=== PATIENT | female | born 1980 | race Hispanic/Latino ===

== ENCOUNTER 2016-10-08 03:43 | Emergency (ER) | payer MEDICAID ==
[2016-10-08] MEDS ORDERED: PROVENTIL IH ONE ×3 (04:32→06:15)
[2016-10-08] MEDS ORDERED: DUONEB 0.5 MG-3 MG/3 ML SOLN IH ONE ×2 (04:32→04:42)
--- NOTE | 2016-10-08 06:14 | Emergency Department Report ---
HPI - General Chief Complaint: Adult Asthma Time Seen by Provider: 10/08/16 06:14 - HPI HPI: Patient here reports that she was having shortness of breath and chest tightness because she couldn't catch her breath. She reports that she ran out of her asthma medication. Denies any fever or chills. She reports dry cough. Patient reports that she needs refill on albuterol inhaler and nebulizer. Patient received DuoNeb nebulizer and Proventil in triage area and says she is feeling better but she still has some wheezing. ED Past Medical Hx - Past Medical History Previous Medical History?: Yes Hx Diabetes: Yes (gestational / BORDERLINE) Hx Asthma: Yes - Surgical History Past Surgical History?: Yes Additional Surgical History: R Foot - Family History Family history: hypertension - Social History Smoking Status: Current Every Day Smoker Substance Use Type: None - Medications Home Medications: Home Medications Medication Instructions Recorded Confirmed Last Taken Type metFORMIN [Glucophage] 500 mg PO DAILY 12/26/13 12/26/13 Unknown History Acetaminophen/Codeine [Tylenol #3] 1 tab PO Q6H PRN #14 tab 12/27/13 Unknown Rx Fluticasone Propionate [Flovent 250 mcg INHALATION Q4H PRN #1 01/04/14 Unknown Rx Diskus] disk.w.dev Acetaminophen/Codeine [Tylenol #3] 1 tab PO Q6H PRN #15 tab 04/20/15 Unknown Rx Ibuprofen [Motrin] 800 mg PO Q8HR #30 tablet 04/20/15 Unknown Rx HYDROcodone/APAP 5-325 [[place] 1 each PO Q6HR PRN #10 tablet 07/17/15 Unknown Rx 5/325] predniSONE [Deltasone] 20 mg PO BID #8 tab 07/17/15 Unknown Rx traMADol [Ultram] 50 mg PO Q4HR PRN #20 tablet 11/19/15 Unknown Rx ALBUTEROL Inhaler [ProAir HFA 1 puff INHALATION Q4H PRN #1 inha 10/08/16 Unknown Rx Inhaler] ALBUTEROL NEB's [Proventil 0.083% 2.5 mg INHALATION Q4H PRN #25 units 10/08/16 Unknown Rx NEBS] methylPREDNISolone [Medrol] 4 mg PO QDAY #1 tab.ds.pk 10/08/16 Unknown Rx ED Review of Systems ROS: Stated complaint: ASTHMA/CHEST PAIN Other details as noted in HPI Comment: All other systems reviewed and negative Constitutional: denies: chills, fever Eyes: denies: eye pain, eye discharge ENT: congestion. denies: ear pain, throat pain Respiratory: cough, shortness of breath, SOB with exertion, SOB at rest, wheezing. denies: orthopnea, stridor Cardiovascular: chest pain. denies: palpitations, dyspnea on exertion, orthopnea, edema, syncope Gastrointestinal: denies: abdominal pain, nausea, vomiting Musculoskeletal: denies: back pain, arthralgia Skin: denies: rash Neurological: denies: headache, numbness, paresthesias, abnormal gait, vertigo Physical Exam - Physical Exam Vital Signs: Vital Signs 10/08/16 10/08/16 10/08/16 04:31 04:38 05:01 Temperature 98.2 F Pulse Rate 88 Pulse Rate [ 88 92 H Throughout] Respiratory 20 Rate Respiratory 20 20 Rate [ Throughout] Blood Pressure 139/78 O2 Sat by Pulse 97 Oximetry General: This is a 32-year-old female, obese and in no acute distress. Physical Exam: Head: Normocephalic atraumatic Mouth: Moist, no pharyngeal exudate or erythema. Uvula is midline and oral airway is patent. No gingival enlargement or dental tenderness. No facial swelling. No peritonsillar abscesses. Neck: Supple, no C-spine tenderness, no tracheal deviation. Nontender to palpate. no adenopathy Ears: Bilateral TMs pearly andrews .bilateral EAC without any redness swelling or drainage Eyes: Bilateral pupils equal and reactive to light, bilateral EOM intact. Bilateral sclera and conjunctiva without injection. Normal accommodation Nose: Mucosa moist, positive congestion no erythema. Positive clear drainage. maxillary and frontal sinus non-tender to palpate. Lungs: Expiratory wheezing to upper lung ballard. Normal work of breathing extremity; No CCE. +2 pulses. No neurovascular compromise Cardiovascular: S1-S2, regular rate rhythm. No murmurs. Skin: clean Dry and intact no rash no lesions Psych: Normal mood and behavior ED Course Vital Signs 10/08/16 10/08/16 10/08/16 04:31 04:38 05:01 Temperature 98.2 F Pulse Rate 88 Pulse Rate [ 88 92 H Throughout] Respiratory 20 Rate Respiratory 20 20 Rate [ Throughout] Blood Pressure 139/78 O2 Sat by Pulse 97 Oximetry - Reevaluation(s) Reevaluation #1: 10/08/16 06:25 Patient received DuoNeb times one nebulizer, Proventil 2.5 mg in triage area with relief of chest tightness and shortness of breath. He received an additional 5 mg of Proventil nebulizer and 60 mg of Deltasone and emergency room. Patient feels better discharged home. 10/08/16 07:07 Reevaluation #2: 10/08/16 07:08 Upon reevaluation, lung ballard, clear 10/08/16 07:08 ED Medical Decision Making - Medical Decision Making ED course: Patient received a total of 7.5 mg of Proventil nebulizer and emergency room and 1 Amps of DuoNeb. SHe also received 60 MG BY MOUTH. Upon reevaluation ,patient lungs clear. She says she is feeling better after treatments. I discussed the patient that she needs to follow-up with her primary care physician in the morning for management of asthma. She does not have a primary care physician she is to call [facility] and schedule appointment for follow-up visit. Patient voiced understanding of discharge instruction. She was discharged home with prescription for albuterol nebulizer, albuterol inhaler and Medrol Dosepak. Critical care attestation.: If time is entered above; I have spent that time in minutes in the direct care of this critically ill patient, excluding procedure time. ED Disposition Clinical Impression: Asthma exacerbation attacks Qualifiers: Asthma severity: mild persistent Qualified Code(s): J45.31 - Mild persistent asthma with (acute) exacerbation Disposition: DISCHARGED TO HOME OR SELFCARE Is pt being admited?: No Does the pt Need Aspirin: No Condition: Stable Instructions: Asthma (ED) Prescriptions: ALBUTEROL Inhaler [ProAir HFA Inhaler] 1 puff INHALATION Q4H PRN #1 inha PRN Reason: Wheezing ALBUTEROL NEB's [Proventil 0.083% NEBS] 2.5 mg INHALATION Q4H PRN #25 units PRN Reason: Wheezing methylPREDNISolone [Medrol] 4 mg PO QDAY #1 tab.ds.pk Referrals: VINAY FISHER DO [Primary Care Provider] - 10/09/16 [facility] [Outside] - 10/09/16 Forms: Work/School Release Form(ED)
[2016-10-08] MEDS ORDERED: DELTASONE PO ONE (06:15)
[2016-10-08 07:05] VITALS: BP 132/86
== END 2016-10-08 07:06 | disposition home or self-care (01) ==
LOC: ED 03:43
DX: J45.31 Mild persistent asthma with (acute) exacerbation (principal); E11.9 Type 2 diabetes mellitus without complications; F17.200 Nicotine dependence, unspecified, uncomplicated
CPT/HCPCS: 93005; 93010; 94640; 99283; J7512

== ENCOUNTER 2016-10-30 17:52 | Emergency (ER) | payer MEDICAID ==
[2016-10-30 19:57] LABS: Basophils % (Auto) 0.4 % (0.0-1.8); Eosinophils % (Auto) 3.4 % (0.0-4.3); Hematocrit 45.9 % (30.3-42.9); Hemoglobin 15.2 gm/dl (10.1-14.3); Mean Corpuscular HGB Conc 33 % (30-34); Mean Corpuscular Hemoglobin 30 pg (28-32); Mean Corpuscular Volume 91 fl (79-97); Platelet Count 311 K/mm3 (140-440); Red Blood Count 5.04 M/mm3 (3.65-5.03); Red Cell Distribution Width 15.5 % (13.2-15.2); White Blood Count 8.3 K/mm3 (4.5-11.0)
[2016-10-30 20:13] LABS: Alanine Aminotransferase 36 units/L (7-56); Albumin 3.9 g/dL (3.9-5); Albumin/Globulin Ratio 1.2 %; Alkaline Phosphatase 64 units/L (35-129); Anion Gap 18 mmol/L; BUN/Creatinine Ratio 14.28; Bilirubin,Total 0.7 mg/dL (0.1-1.2); Blood Urea Nitrogen 10 mg/dL (7-17); Calcium 8.9 mg/dL (8.4-10.2); Carbon Dioxide 23 mmol/L (22-30); Chloride 96.5 mmol/L (98-107); Glucose 208 mg/dL (65-100); Lipase 17 units/L (13-60); Potassium 3.7 mmol/L (3.6-5.0); Sodium 134 mmol/L (137-145); Total Protein 7.1 g/dL (6.3-8.2)
[2016-10-30] MEDS ORDERED: ZOFRAN IV ONE (21:14)
[2016-10-30] MEDS ORDERED: MORPHINE IV ONE (21:14)
[2016-10-30] MEDS ORDERED: NACL 0.9% 500 ML 500 ML IV ONE (21:14)
[2016-10-30] MEDS ORDERED: ZOFRAN ODT PO ONE (21:47)
[2016-10-30] MEDS ORDERED: NORCO 5/325 PO ONE (21:47)
--- NOTE | 2016-10-30 21:50 | Emergency Department Report ---
HPI - General Chief Complaint: Abdominal Pain Time Seen by Provider: 10/30/16 21:02 - HPI HPI: The patient is 36-year-old female who presents for evaluation of abdominal pain. The patient reports epigastric abdominal pain since last night, greater than 24 hours ago. She states that since onset her pain has been constant and 10/10 in severity, cramping and squeezing in quality, exacerbated with vomiting , and associated with constant nausea and multiple episodes of nonbilious, nonbloody emesis, and loose watery stools. The patient denies fever, chills, night sweats, chest pain, dyspnea, blood in the stool, dark tarry stool, dysuria , hematuria, flank pain, genital discharge, inability to pass flatus. ED Past Medical Hx - Past Medical History Hx Diabetes: Yes (gestational / BORDERLINE) Hx Asthma: Yes - Surgical History Additional Surgical History: R Foot - Social History Smoking Status: Current Every Day Smoker Substance Use Type: None - Medications Home Medications: Home Medications Medication Instructions Recorded Confirmed Last Taken Type metFORMIN [Glucophage] 1,000 mg PO DAILY 12/26/13 12/26/13 Unknown History ALBUTEROL Inhaler [ProAir HFA 1 puff INHALATION Q4H PRN #1 inha 10/08/16 Unknown Rx Inhaler] ALBUTEROL NEB's [Proventil 0.083% 2.5 mg INHALATION Q4H PRN #25 units 10/08/16 Unknown Rx NEBS] Ondansetron [Zofran TAB] 4 mg PO Q8HR PRN #15 tablet 10/30/16 Unknown Rx traMADol [Ultram 50 MG tab] 50 mg PO Q6HR PRN #15 tablet 10/30/16 Unknown Rx ED Review of Systems ROS: Stated complaint: ABD PAIN Other details as noted in HPI Constitutional: denies: fever ENT: denies: throat or neck pain Respiratory: denies: cough, shortness of breath Cardiovascular: denies: chest pain Endocrine: denies unexplained weight loss or gain Gastrointestinal: reports abdominal pain, nausea Genitourinary: denies: dysuria Musculoskeletal: denies: leg swelling Skin: denies: rash Neurological: denies: headache Hematological/Lymphatic: denies: easy bleeding or easy bruising Psych: denies sadness or hopelessness Physical Exam - Physical Exam Vital Signs: Vital Signs 10/30/16 18:39 Temperature 99 F Pulse Rate 85 Respiratory 18 Rate Blood Pressure 130/97 O2 Sat by Pulse 99 Oximetry Physical Exam: General: well-nourished, well-developed, no acute distress Head: Normocephalic, atraumatic Eyes: normal sclera ENT: Mucous membranes are pale and dry Neck: No neck stiffness, no cervical adenopathy Respiratory: Breath sounds equal bilaterally, no wheezing, rales, or rhonchi Cardio: S1 and S2 present, no murmurs, rubs, gallops, capillary refill is delayed Abdomen: Normoactive bowel sounds, soft abdomen, epigastric tenderness to palpation present, no rigidity, no guarding or rebound tenderness Musc: No pitting edema Skin: No rash Neuro: no facial drooping, normal speech Psych: Normal affect ED Course Vital Signs 10/30/16 18:39 Temperature 99 F Pulse Rate 85 Respiratory 18 Rate Blood Pressure 130/97 O2 Sat by Pulse 99 Oximetry ED Medical Decision Making - Lab Data Result diagrams: 10/30/16 19:39 10/30/16 19:39 - Medical Decision Making The patient was seen and examined by myself. The patient is placed on a director of cardiac cath lab and continuous pulse ox. On initial evaluation, the patient was found to be in no distress. Evaluation orders were placed. The patient declines normal saline fluid bolus treatment of dehydration. The patient is given a tablet of [place] for her pain and Zofran for nausea. Lab results reveal elevated glucose 208, and elevated RBC, hemoglobin and hematocrit, consistent with hemoconcentration and exam findings of dehydration, and otherwise labs were grossly unremarkable including negative test. Patient is given a tablet of metformin for treatment of her hyperglycemia. The patient was reevaluated and reported that their symptoms were markedly improved. The patient is stable for discharge with outpatient follow-up. The patient is given follow-up and return instructions. The patient expressed understanding and agreed with the plan. The patient is discharged in stable condition. Critical care attestation.: If time is entered above; I have spent that time in minutes in the direct care of this critically ill patient, excluding procedure time. ED Disposition Clinical Impression: Abdominal pain, acute, epigastric, Dehydration, Nausea and vomiting in adult patient, Acute hyperglycemia Disposition: DISCHARGED TO HOME OR SELFCARE Is pt being admited?: No Does the pt Need Aspirin: No Condition: Stable Instructions: Abdominal Pain (ED), Gastroenteritis (ED) Referrals: VINAY FISHER DO [Primary Care Provider] - 3-5 Days Time of Disposition: 21:01
[2016-10-30 22:01] VITALS: BP 134/84
[2016-10-30] MEDS ORDERED: GLUCOPHAGE PO ONE (22:03)
== END 2016-10-30 22:20 | disposition home or self-care (01) ==
LOC: ED 17:52
DX: R10.13 Epigastric pain (principal); E86.0 Dehydration; R11.2 Nausea with vomiting, unspecified; E11.65 Type 2 diabetes mellitus with hyperglycemia; J45.909 Unspecified asthma, uncomplicated; F17.200 Nicotine dependence, unspecified, uncomplicated
CPT/HCPCS: 36415; 80053; 83690; 84703; 85025; 99284; J7040; J2270; J2405; Q0162

== ENCOUNTER 2016-12-04 12:10 | Emergency (ER) | payer MEDICAID ==
[2016-12-04 14:19] VITALS: BP 141/85
[2016-12-04] MEDS ORDERED: TORADOL IM ONE (15:46)
--- NOTE | 2016-12-04 15:47 | Emergency Department Report ---
Entered by KELLEN COSME, acting as scribe for JONATHAN GUPTA NP. Chief Complaint: Neck Pain/Injury Stated Complaint: NECK STIFFNESS Time Seen by Provider: 12/04/16 15:36 - HPI History of Present Illness: Patient presents to the ED c/o neck pain that began yesterday. Patient states that she turn her neck too fast to the right when someone yelled her name. - ROS Review of Systems: All other systems reviewed are negative unless stated in HPI above. - Exam Vital Signs: Vital Signs 12/04/16 14:16 Temperature 98.6 F Pulse Rate 86 Respiratory 18 Rate Blood Pressure 141/85 O2 Sat by Pulse 97 Oximetry Physical Exam: General: alert and oriented x 3, in no acute distress Neck: limited range of motion due to pain, posterior neck tenderness MSE screening note: Focused history and physical exam performed. Due to findings the following was ordered: ON FLEXERIL W NO RELIEF NO FALL TWISTED LAST PM NEURO INTACT ED Medical Decision Making - Medical Decision Making Patient seen in triage are by provider. Blood sugar level will be check before patient is discharged. ED Disposition for MSE Condition: Stable Referrals: VINAY FISHER DO [Primary Care Provider] - 3-5 Days This documentation as recorded by the scribe,KELLEN COSME,accurately reflects the service I personally performed and the decisions made by BEKAH chapin CATHLEEN A, NP.
--- NOTE | 2016-12-04 17:22 | Emergency Department Report ---
ED Neck Pain HPI Chief Complaint: Neck Pain/Injury Stated Complaint: NECK STIFFNESS Time Seen by Provider: 12/04/16 17:15 Duration: 1 Day Neck Pain Location: Paraspinal Severity: mild Mechanism: Twist Symptoms: Yes Pain with Movement, No Radiation to Left Upper Ext, No Radiation to Right Upper Ext, No Numbness, No Weakness, No Previous History ED Review of Systems ROS: Stated complaint: NECK STIFFNESS Other details as noted in HPI Comment: All other systems reviewed and negative Constitutional: no symptoms reported Eyes: as per HPI ENT: as per HPI Respiratory: no symptoms reported Cardiovascular: as per HPI Endocrine: no symptoms reported Gastrointestinal: as per HPI Genitourinary: as per HPI Musculoskeletal: as per HPI Skin: as per HPI Neurological: as per HPI Psychiatric: as per HPI Hematological/Lymphatic: as per HPI ED Past Medical Hx - Past Medical History Hx Diabetes: Yes (gestational / BORDERLINE) Hx Asthma: Yes - Surgical History Additional Surgical History: R Foot - Social History Smoking Status: Current Every Day Smoker Substance Use Type: None - Medications Home Medications: Home Medications Medication Instructions Recorded Confirmed Last Taken Type metFORMIN [Glucophage] 1,000 mg PO DAILY 12/26/13 12/26/13 Unknown History ALBUTEROL Inhaler [ProAir HFA 1 puff INHALATION Q4H PRN #1 inha 10/08/16 Unknown Rx Inhaler] ALBUTEROL NEB's [Proventil 0.083% 2.5 mg INHALATION Q4H PRN #25 units 10/08/16 Unknown Rx NEBS] Ondansetron [Zofran TAB] 4 mg PO Q8HR PRN #15 tablet 10/30/16 Unknown Rx traMADol [Ultram 50 MG tab] 50 mg PO Q6HR PRN #15 tablet 10/30/16 Unknown Rx Cyclobenzaprine [Flexeril] 10 mg PO TID PRN #12 tablet 12/04/16 Unknown Rx methylPREDNISolone [Medrol] 4 mg PO DAILY #1 tab.ds.pk 12/04/16 Unknown Rx Neck Pain Exam - Exam General: Vital signs noted. No distress. Alert and acting appropriately. HEENT: No Facial Pain, No Scalp Tenderness, No Contusion, No Abrasion, No Laceration Neck Pain: Yes Right Paraspinal Tenderness, Yes Left Paraspinal Tenderness, Yes Pain with Extension, No Midline Tenderness, No Right Trapezius Tenderness, No Left Trapezius Tenderness, No Pain with Rotation Right, No Pain with Rotation Left, No Pain with Flexion, No pain with R Lateral Flexion, No Pain with L Lateral Flexion Chest: Yes Clear Lung Sounds, No Pain with Respirations Heart: Yes Regular, No Murmur Back: No Thoracic Tenderness, No Lumbar Tenderness Neuro: No Numbness, No Weakness ED Course Vital Signs 12/04/16 12/04/16 14:16 17:07 Temperature 98.6 F Pulse Rate 86 Respiratory 18 18 Rate Blood Pressure 141/85 O2 Sat by Pulse 97 Oximetry ED Medical Decision Making - Medical Decision Making BS NOTED TORADOL FOR PAIN NO FALL JUST STARTLED YEST AND TURNED HEAD FAST AND CAUSED SPASM HERE W CHILD WHO HURT HER FOOT VSS NAD NEURO INTACT NO FEVER FLEXERIL NOT WORKING AT HOME. Critical care attestation.: If time is entered above; I have spent that time in minutes in the direct care of this critically ill patient, excluding procedure time. ED Disposition Clinical Impression: Neck muscle spasm Disposition: DISCHARGED TO HOME OR SELFCARE Is pt being admited?: No Does the pt Need Aspirin: No Condition: Good Instructions: Muscle Spasm (ED) Additional Instructions: WARM COMPRESSES CONTINUE FLEXERIL W MED GIVEN TODAY AND YOU SHOULD FEEL BETTER Prescriptions: Cyclobenzaprine [Flexeril] 10 mg PO TID PRN #12 tablet PRN Reason: Muscle Spasm methylPREDNISolone [Medrol] 4 mg PO DAILY #1 tab.ds.pk Referrals: VINAY FISHER DO [Primary Care Provider] - 3-5 Days Time of Disposition: 17:18
== END 2016-12-04 18:00 | disposition home or self-care (01) ==
LOC: ED 12:10
DX: M62.838 Other muscle spasm (principal); M54.2 Cervicalgia; Z86.32 Personal history of gestational diabetes; J45.909 Unspecified asthma, uncomplicated; F17.200 Nicotine dependence, unspecified, uncomplicated
CPT/HCPCS: 82962; 96372; 99283; J1885

== ENCOUNTER 2016-12-11 14:26 | Emergency (ER) | payer MEDICAID ==
[2016-12-11 14:40] VITALS: BP 134/78
[2016-12-11] MEDS ORDERED: DUONEB 0.5 MG-3 MG/3 ML SOLN IH ONE (14:42)
--- NOTE | 2016-12-11 15:19 | Emergency Department Report ---
HPI - General Chief Complaint: Dyspnea/Respdistress Time Seen by Provider: 12/11/16 15:05 - HPI HPI: Patient is a 36-year-old female with a history of asthma who is on nebulizer and inhaler who presents to the ED stating she ran out of her medication at home and had an accidental excess patient today. Patient states she started persistent dry cough earlier today. And came in to the ED to be evaluated. Patient states she is not due for her primary care physician to the middle of next month. Patient denies any assessed chills/nausea/vomiting/abdominal pain/shortness of breath/dizziness/headache or any other problems. ED Past Medical Hx - Past Medical History Hx Diabetes: Yes (gestational / BORDERLINE) Hx Asthma: Yes - Surgical History Additional Surgical History: R Foot - Social History Smoking Status: Current Every Day Smoker Substance Use Type: None - Medications Home Medications: Home Medications Medication Instructions Recorded Confirmed Last Taken Type metFORMIN [Glucophage] 1,000 mg PO DAILY 12/26/13 12/26/13 Unknown History Ondansetron [Zofran TAB] 4 mg PO Q8HR PRN #15 tablet 10/30/16 Unknown Rx traMADol [Ultram 50 MG tab] 50 mg PO Q6HR PRN #15 tablet 10/30/16 Unknown Rx Cyclobenzaprine [Flexeril] 10 mg PO TID PRN #12 tablet 12/04/16 Unknown Rx ALBUTEROL Inhaler [ProAir HFA 1 puff INHALATION Q4H PRN #1 inha 12/11/16 Unknown Rx Inhaler] ALBUTEROL NEB's [Proventil 0.083% 2.5 mg INHALATION Q4H PRN #25 units 12/11/16 Unknown Rx NEBS] methylPREDNISolone [Medrol Dose 4 mg PO DAILY #1 tab.ds.pk 12/11/16 Unknown Rx Aditya] ED Review of Systems ROS: Stated complaint: ASTHMA Other details as noted in HPI Constitutional: denies: chills, fever Eyes: denies: eye pain, eye discharge, vision change ENT: denies: ear pain, throat pain, dental pain, hearing loss Respiratory: cough (dry non prod). denies: shortness of breath, wheezing Cardiovascular: denies: chest pain, palpitations Endocrine: no symptoms reported Gastrointestinal: denies: abdominal pain, nausea, diarrhea Genitourinary: denies: urgency, dysuria, discharge Musculoskeletal: denies: back pain, joint swelling, arthralgia Skin: denies: rash, lesions Neurological: denies: headache, weakness, paresthesias Psychiatric: denies: anxiety, depression Hematological/Lymphatic: denies: easy bleeding, easy bruising Physical Exam - Physical Exam Vital Signs: Vital Signs 12/11/16 12/11/16 12/11/16 14:37 14:55 14:56 Temperature 97.6 F Pulse Rate 95 H Pulse Rate [ 96 H 95 H Anterior Bilateral Throughout] Respiratory 18 Rate Respiratory 17 18 Rate [Anterior Bilateral Throughout] Blood Pressure 134/78 O2 Sat by Pulse 100 Oximetry Physical Exam: GENERAL: Alert and oriented x3, no apparent distress, Normal Gait, atraumatic. HEAD: Head is normocephalic and a-traumatic. EYES: Extra ocular muscles are intact. Pupils are equal, round, and reactive to light and accommodation. NOSE: Nose symetrical, Nontender,Nares appeared normal. MOUTH:Mouth is well hydrated and without lesions. Tonsils nonerythematous or swollen, Uvula midline, Tongue not elevated. Mucous membranes are moist. Posterior pharynx clear, no exudate or lesions. Patent airways. NECK: Supple. Non edematous, No carotid bruits. No lymphadenopathy or thyromegaly. No C-spine tenderness LUNGS: Symetrical with respiration, no tripoding, no use of accessory muscles .mild wheezing in lung bases bilaterally, good breath sounds no rales or crackles, CTAB. HEART: S1, S2 present, regular rate and rhythm without murmur, no rubs, no gallops. EXTREMITIES/MUSCULOSKELETAL: No cyanosis, clubbing, rash, lesions or edema. Full ROM bilaterally. UE/LE Pulses 2+ bilaterally. SKIN: Warm and dry, No lesions, No ulceration or induration present. ED Course Vital Signs 12/11/16 12/11/16 12/11/16 14:37 14:55 14:56 Temperature 97.6 F Pulse Rate 95 H Pulse Rate [ 96 H 95 H Anterior Bilateral Throughout] Respiratory 18 Rate Respiratory 17 18 Rate [Anterior Bilateral Throughout] Blood Pressure 134/78 O2 Sat by Pulse 100 Oximetry ED Medical Decision Making - Medical Decision Making 36-year-old female presents with asthma and exacerbation ED course: Patient received one respiratory treatment in ED. Patient received 60 mg of prednisone by mouth. Vital signs are normal. Patient satting at 100% room air. Resident acute or respiratory distress. Discussed medication refill on albuterol nebulizer and inhaler. Patient is sent home on a couple days of prednisone pack. Discussed with patient to follow up with primary care physician Critical care attestation.: If time is entered above; I have spent that time in minutes in the direct care of this critically ill patient, excluding procedure time. ED Disposition Clinical Impression: Medication refill, Asthma exacerbation, mild Disposition: DISCHARGED TO HOME OR SELFCARE Is pt being admited?: No Does the pt Need Aspirin: No Condition: Stable Instructions: Asthma (ED) Prescriptions: ALBUTEROL Inhaler [ProAir HFA Inhaler] 1 puff INHALATION Q4H PRN #1 inha PRN Reason: Wheezing ALBUTEROL NEB's [Proventil 0.083% NEBS] 2.5 mg INHALATION Q4H PRN #25 units PRN Reason: Wheezing methylPREDNISolone [Medrol Dose Aditya] 4 mg PO DAILY #1 tab.ds.pk Referrals: PRIMARY CARE, [Primary Care Provider] - 3-5 Days [facility] [Outside] - 3-5 Days [facility] [Outside] - 3-5 Days Forms: Work/School Release Form(ED) Time of Disposition: 15:21
[2016-12-11] MEDS ORDERED: DELTASONE PO ONE (15:21)
== END 2016-12-11 15:46 | disposition home or self-care (01) ==
LOC: ED 14:26
DX: J45.901 Unspecified asthma with (acute) exacerbation (principal); F17.200 Nicotine dependence, unspecified, uncomplicated; Z86.32 Personal history of gestational diabetes
CPT/HCPCS: 94640; 99283; J7512

== ENCOUNTER 2017-04-02 09:16 | Emergency (ER) | payer MEDICAID ==
[2017-04-02] MEDS ORDERED: DUONEB *Not for PRN Use IH ONE ×2 (11:22→12:21)
[2017-04-02] MEDS ORDERED: DELTASONE PO ONE (11:22)
[2017-04-02] MEDS ORDERED: PROVENTIL IH ONE (11:24)
--- NOTE | 2017-04-02 11:25 | Emergency Department Report ---
ED Asthma HPI - General Chief Complaint: Adult Asthma Stated Complaint: ASTHMA FLARE UP Time Seen by Provider: 04/02/17 11:21 Source: patient Mode of arrival: Ambulatory Limitations: No Limitations - History of Present Illness Initial Comments: 36-year-old female past medical history smoker, borderline disorder, asthma presents with complaint of shortness of breath and intermittent wheezing since yesterday. Patient does not appear to have any respiratory retractions is able to speak in full sentences states that she has been wheezing intermittently since yesterday denies any chest pain fever or chills states she has been coughing but it is not productive. States she ran out of her asthma medicine over a month ago MD Complaint: "asthma attack", wheezing Onset/Timin -: days(s), During the night, Last night Asthma History: history of frequent attac Severity: mild Context: ran out of meds Associated Symptoms: dry cough Treatments Prior to Arrival: inhaled bronchodilator - Related Data Home Medications Medication Instructions Recorded Confirmed Last Taken metFORMIN [Glucophage] 1,000 mg PO DAILY 12/26/13 12/26/13 Unknown Previous Rx's Medication Instructions Recorded Last Taken Type Ondansetron [Zofran TAB] 4 mg PO Q8HR PRN #15 tablet 10/30/16 Unknown Rx traMADol [Ultram 50 MG tab] 50 mg PO Q6HR PRN #15 tablet 10/30/16 Unknown Rx Cyclobenzaprine [Flexeril] 10 mg PO TID PRN #12 tablet 12/04/16 Unknown Rx ALBUTEROL Inhaler [ProAir HFA 1 puff INHALATION Q4H PRN #1 inha 12/11/16 Unknown Rx Inhaler] methylPREDNISolone [Medrol Dose 4 mg PO DAILY #1 tab.ds.pk 12/11/16 Unknown Rx Anastasia] ALBUTEROL Inhaler [ProAir HFA 2 puff IH QID PRN #1 inhalation 04/02/17 Unknown Rx Inhaler] ALBUTEROL NEB's [Proventil 0.083% 2.5 mg INHALATION Q4H PRN #25 units 04/02/17 Unknown Rx NEBS] Azithromycin [Zithromax Z-ANASTASIA] 250 mg PO QDAY #6 tablet 04/02/17 Unknown Rx Fluticasone/Salmeterol [Advair 1 puff INHALATION Q12H #1 04/02/17 Unknown Rx 250-50 Diskus] blst.w.dev predniSONE [Deltasone] 20 mg PO QDAY #4 tab 04/02/17 Unknown Rx Allergies Allergy/AdvReac Type Severity Reaction Status Date / Time No Known Allergies Allergy Verified 04/02/17 09:25 ED Review of Systems ROS: Stated complaint: ASTHMA FLARE UP Other details as noted in HPI Constitutional: denies: chills, fever Eyes: denies: eye pain, eye discharge, vision change ENT: denies: ear pain, throat pain Respiratory: cough, shortness of breath, wheezing Cardiovascular: denies: chest pain, palpitations Endocrine: no symptoms reported Gastrointestinal: denies: abdominal pain, nausea, diarrhea Genitourinary: denies: urgency, dysuria, discharge Musculoskeletal: denies: back pain, joint swelling, arthralgia Skin: denies: rash, lesions Neurological: denies: headache, weakness, paresthesias Psychiatric: denies: anxiety, depression Hematological/Lymphatic: denies: easy bleeding, easy bruising ED Past Medical Hx - Past Medical History Previous Medical History?: Yes Hx Diabetes: Yes (gestational / BORDERLINE) Hx Asthma: Yes - Surgical History Additional Surgical History: R Foot - Social History Smoking Status: Current Every Day Smoker Substance Use Type: None - Medications Home Medications: Home Medications Medication Instructions Recorded Confirmed Last Taken Type metFORMIN [Glucophage] 1,000 mg PO DAILY 12/26/13 12/26/13 Unknown History Ondansetron [Zofran TAB] 4 mg PO Q8HR PRN #15 tablet 10/30/16 Unknown Rx traMADol [Ultram 50 MG tab] 50 mg PO Q6HR PRN #15 tablet 10/30/16 Unknown Rx Cyclobenzaprine [Flexeril] 10 mg PO TID PRN #12 tablet 12/04/16 Unknown Rx ALBUTEROL Inhaler [ProAir HFA 1 puff INHALATION Q4H PRN #1 inha 12/11/16 Unknown Rx Inhaler] methylPREDNISolone [Medrol Dose 4 mg PO DAILY #1 tab.ds.pk 12/11/16 Unknown Rx Anastasia] ALBUTEROL Inhaler [ProAir HFA 2 puff IH QID PRN #1 inhalation 04/02/17 Unknown Rx Inhaler] ALBUTEROL NEB's [Proventil 0.083% 2.5 mg INHALATION Q4H PRN #25 units 04/02/17 Unknown Rx NEBS] Azithromycin [Zithromax Z-ANASTASIA] 250 mg PO QDAY #6 tablet 04/02/17 Unknown Rx Fluticasone/Salmeterol [Advair 1 puff INHALATION Q12H #1 04/02/17 Unknown Rx 250-50 Diskus] blst.w.dev predniSONE [Deltasone] 20 mg PO QDAY #4 tab 04/02/17 Unknown Rx ED Physical Exam - General Limitations: No Limitations General appearance: alert, in no apparent distress - Head Head exam: Present: atraumatic, normocephalic - Eye Eye exam: Present: normal appearance, PERRL, EOMI - ENT ENT exam: Present: mucous membranes moist - Neck Neck exam: Present: normal inspection, full ROM - Respiratory Respiratory exam: Present: normal lung sounds bilaterally, respiratory distress , wheezes (wheezing bilaterally both lower lung ballard) - Cardiovascular Cardiovascular Exam: Present: regular rate, normal rhythm. Absent: systolic murmur, diastolic murmur, rubs, gallop - GI/Abdominal GI/Abdominal exam: Present: soft, normal bowel sounds - Extremities Exam Extremities exam: Present: normal inspection - Back Exam Back exam: Present: normal inspection - Neurological Exam Neurological exam: Present: alert, oriented X3 - Psychiatric Psychiatric exam: Present: normal affect, normal mood - Skin Skin exam: Present: warm, dry, intact, normal color. Absent: rash ED Course Vital Signs 04/02/17 04/02/17 04/02/17 09:25 11:45 12:13 Temperature 98.6 F Pulse Rate 89 Pulse Rate [ 80 97 H Posterior Bilateral Throughout] Respiratory 20 Rate Respiratory 20 20 Rate [Posterior Bilateral Throughout] Blood Pressure 139/90 O2 Sat by Pulse 100 Oximetry ED Medical Decision Making - Medical Decision Making A/P: Asthma exacerbation, reactive airway disease, smoking 1-refill on albuterol, albuterol nebulizer refilled, Advair refill, short course prednisone low dose as patient is a diabetic 2-patient clinically states she feels significantly better decreased wheezing, O2 sat stable on room air, speaking in full sentences no visible respiratory retractions on exam 3-patient referred to primary care Critical care attestation.: If time is entered above; I have spent that time in minutes in the direct care of this critically ill patient, excluding procedure time. ED Disposition Clinical Impression: Asthma Qualifiers: Asthma severity: mild persistent Asthma complication type: with acute exacerbation Qualified Code(s): J45.31 - Mild persistent asthma with (acute) exacerbation Disposition: TO HOME OR SELFCARE Is pt being admited?: No Does the pt Need Aspirin: No Condition: Stable Instructions: Asthma (ED), Reactive Airways Disease (ED) Prescriptions: ALBUTEROL Inhaler [ProAir HFA Inhaler] 2 puff IH QID PRN #1 inhalation PRN Reason: Shortness Of Breath ALBUTEROL NEB's [Proventil 0.083% NEBS] 2.5 mg INHALATION Q4H PRN #25 units PRN Reason: Wheezing Azithromycin [Zithromax Z-ANASTASIA] 250 mg PO QDAY #6 tablet Fluticasone/Salmeterol [Advair 250-50 Diskus] 1 puff INHALATION Q12H #1 blst.w.dev predniSONE [Deltasone] 20 mg PO QDAY #4 tab Referrals: TYLER FAIRCHILD MD [Staff Physician] - 3-5 Days Forms: Work/School Release Form(ED) Time of Disposition: 12:43
[2017-04-02 13:07] VITALS: BP 139/68
== END 2017-04-02 13:08 | disposition home or self-care (01) ==
LOC: ED 09:16
DX: J45.31 Mild persistent asthma with (acute) exacerbation (principal); E11.9 Type 2 diabetes mellitus without complications; F17.200 Nicotine dependence, unspecified, uncomplicated
CPT/HCPCS: 94640; 99283; J7512

== ENCOUNTER 2017-05-11 08:12 | Emergency (ER) | payer MEDICAID ==
[2017-05-11 08:20] VITALS: BP 128/82
[2017-05-11] MEDS ORDERED: DUONEB *Not for PRN Use IH ONE (10:35)
--- NOTE | 2017-05-11 10:40 | Emergency Department Report ---
ED General Adult HPI - General Chief complaint: Adult Asthma Stated complaint: SOB Time Seen by Provider: 05/11/17 10:23 Source: patient Mode of arrival: Ambulatory Limitations: No Limitations - History of Present Illness Initial comments: PT c/o needing her albuterol solution for her neb. PT states she has been out of solution for 1 month. PT states that she wheezes every day. PT also thinks she might be . PT states she has vaginal itching and changes to her urine. PT states she is a diabetic and her PCP is trying to find something that works. PT states she was on Metformin but that it was stopped. PT states her bg has been high for several days. PT states it will go up to 500- 600 at times. PT drinking a Coke and states, "I don't know why my sugar goes up." Complaint: wheezing/ discharge -: Gradual, month(s) Location: chest, genitals Improves with: medication (nebulizer solution, however, pt is out ) Associated Symptoms: cough, nausea/vomiting, rash, shortness of breath ( wheezing ) - Related Data Home Medications Medication Instructions Recorded Confirmed Last Taken metFORMIN [Glucophage] 1,000 mg PO DAILY 12/26/13 12/26/13 Unknown Previous Rx's Medication Instructions Recorded Last Taken Type Ondansetron [Zofran TAB] 4 mg PO Q8HR PRN #15 tablet 10/30/16 Unknown Rx traMADol [Ultram 50 MG tab] 50 mg PO Q6HR PRN #15 tablet 10/30/16 Unknown Rx Cyclobenzaprine [Flexeril] 10 mg PO TID PRN #12 tablet 12/04/16 Unknown Rx ALBUTEROL Inhaler [ProAir HFA 1 puff INHALATION Q4H PRN #1 inha 12/11/16 Unknown Rx Inhaler] methylPREDNISolone [Medrol Dose 4 mg PO DAILY #1 tab.ds.pk 12/11/16 Unknown Rx Anastasia] ALBUTEROL Inhaler [ProAir HFA 2 puff IH QID PRN #1 inhalation 04/02/17 Unknown Rx Inhaler] ALBUTEROL NEB's [Proventil 0.083% 2.5 mg INHALATION Q4H PRN #25 units 04/02/17 Unknown Rx NEBS] Azithromycin [Zithromax Z-ANASTASIA] 250 mg PO QDAY #6 tablet 04/02/17 Unknown Rx Fluticasone/Salmeterol [Advair 1 puff INHALATION Q12H #1 04/02/17 Unknown Rx 250-50 Diskus] blst.w.dev predniSONE [Deltasone] 20 mg PO QDAY #4 tab 04/02/17 Unknown Rx Allergies Allergy/AdvReac Type Severity Reaction Status Date / Time No Known Allergies Allergy Verified 04/02/17 09:25 ED Review of Systems ROS: Stated complaint: SOB Other details as noted in HPI Comment: All other systems reviewed and negative Constitutional: denies: fever Respiratory: cough, shortness of breath, wheezing Cardiovascular: denies: chest pain Endocrine: increased thirst, increased urine Gastrointestinal: nausea. denies: abdominal pain, vomiting Genitourinary: discharge, abnormal menses (pt did not get a cycle this month ), other (itching ) Musculoskeletal: denies: back pain Skin: rash ED Past Medical Hx - Past Medical History Hx Diabetes: Yes (gestational / BORDERLINE) Hx Asthma: Yes - Surgical History Past Surgical History?: Yes Additional Surgical History: R Foot - Social History Smoking Status: Current Every Day Smoker Substance Use Type: None - Medications Home Medications: Home Medications Medication Instructions Recorded Confirmed Last Taken Type metFORMIN [Glucophage] 1,000 mg PO DAILY 12/26/13 12/26/13 Unknown History Ondansetron [Zofran TAB] 4 mg PO Q8HR PRN #15 tablet 10/30/16 Unknown Rx traMADol [Ultram 50 MG tab] 50 mg PO Q6HR PRN #15 tablet 10/30/16 Unknown Rx Cyclobenzaprine [Flexeril] 10 mg PO TID PRN #12 tablet 12/04/16 Unknown Rx ALBUTEROL Inhaler [ProAir HFA 1 puff INHALATION Q4H PRN #1 inha 12/11/16 Unknown Rx Inhaler] methylPREDNISolone [Medrol Dose 4 mg PO DAILY #1 tab.ds.pk 12/11/16 Unknown Rx Anastasia] ALBUTEROL Inhaler [ProAir HFA 2 puff IH QID PRN #1 inhalation 04/02/17 Unknown Rx Inhaler] ALBUTEROL NEB's [Proventil 0.083% 2.5 mg INHALATION Q4H PRN #25 units 04/02/17 Unknown Rx NEBS] Azithromycin [Zithromax Z-ANASTASIA] 250 mg PO QDAY #6 tablet 04/02/17 Unknown Rx Fluticasone/Salmeterol [Advair 1 puff INHALATION Q12H #1 04/02/17 Unknown Rx 250-50 Diskus] blst.w.dev predniSONE [Deltasone] 20 mg PO QDAY #4 tab 04/02/17 Unknown Rx ED Physical Exam - General Limitations: No Limitations General appearance: alert, in no apparent distress, obese - Head Head exam: Present: atraumatic, normocephalic, normal inspection - Eye Eye exam: Present: normal appearance, PERRL, EOMI. Absent: conjunctival injection - ENT ENT exam: Present: normal exam, mucous membranes moist, normal external ear exam - Neck Neck exam: Present: normal inspection, full ROM - Respiratory Respiratory exam: Present: wheezes. Absent: normal lung sounds bilaterally ( rodri wheezing ), respiratory distress, rales, rhonchi, chest wall tenderness - Cardiovascular Cardiovascular Exam: Present: regular rate, normal rhythm, normal heart sounds - GI/Abdominal GI/Abdominal exam: Present: soft. Absent: tenderness - Extremities Exam Extremities exam: Present: normal inspection, full ROM - Back Exam Back exam: Present: normal inspection, full ROM. Absent: tenderness, CVA tenderness (R), CVA tenderness (L) - Neurological Exam Neurological exam: Present: alert, oriented X3 - Psychiatric Psychiatric exam: Present: normal affect, normal mood - Skin Skin exam: Present: warm, dry, intact, normal color ED Course Vital Signs 05/11/17 08:14 Temperature 97.9 F Pulse Rate 94 H Blood Pressure 128/82 O2 Sat by Pulse 16 L Oximetry - Reevaluation(s) Reevaluation #1: 05/11/17 10:42 Educated pt on ADA diet. Encouraged pt to refrain from drinking Coke and sodas or sugary drinks. PT aware of plan of care. PT has no questions at this time. Reevaluation #2: 05/11/17 12:02 PT eloped. ED Medical Decision Making - Differential Diagnosis asthma, vaginitis, uti Critical Care Time: No Critical care attestation.: If time is entered above; I have spent that time in minutes in the direct care of this critically ill patient, excluding procedure time. ED Disposition Clinical Impression: Non-compliant patient, Amenorrhea, Vaginal itching Asthma Qualifiers: Asthma severity: unspecified severity Asthma complication type: with acute exacerbation Qualified Code(s): J45.901 - Unspecified asthma with (acute) exacerbation Disposition: ELOPED Is pt being admited?: No Does the pt Need Aspirin: No Condition: Stable Instructions: Asthma (ED) Referrals: LEOPOLDO GUILLEN MD [Primary Care Provider] - 3-5 Days Time of Disposition: 12:04
== END 2017-05-11 12:04 | disposition left against medical advice (07) ==
LOC: ED 08:12
DX: L29.2 Pruritus vulvae (principal); N91.2 Amenorrhea, unspecified; J45.909 Unspecified asthma, uncomplicated; E11.9 Type 2 diabetes mellitus without complications; F17.210 Nicotine dependence, cigarettes, uncomplicated
CPT/HCPCS: 81025; 82962; 99283

== ENCOUNTER 2017-05-12 08:06 | Emergency (ER) | payer MEDICAID ==
[2017-05-12] MEDS ORDERED: DUONEB *Not for PRN Use IH ONE ×2 (10:31→11:56)
[2017-05-12] MEDS ORDERED: DELTASONE PO ONE (10:31)
[2017-05-12] MEDS ORDERED: GLUCOPHAGE PO ONE (10:32)
--- NOTE | 2017-05-12 10:32 | Emergency Department Report ---
ED Asthma HPI - General Chief Complaint: Adult Asthma Stated Complaint: ASTHMA, COUGH, WHEEZING X 2 DAYS Time Seen by Provider: 05/12/17 10:30 Source: patient Mode of arrival: Ambulatory Limitations: No Limitations - History of Present Illness Initial Comments: 37-year-old female past medical history diabetes, right eye blindness, hypertension, asthma presents with complaint of shortness of breath and wheezing since yesterday. Patient states that she came to the ED yesterday but eloped before being treated. Patient states that she ran out of her asthma medications and has been wheezing since yesterday intermittently. Patient is awake alert and oriented 3 no audible stridor or wheezing no visible respiratory retractions. Patient also states she brought her daughter for asthma treatment. Patient is fully lucid and cooperative. Patient also states she has not taken her metformin and over a year. When I asked her why she stated that she has not had a primary doctor and does not like taking diabetes medication. Patient states she had an elevated fingerstick glucose in triage. Denies chest pain denies palpitations denies fever or chills. MD Complaint: "asthma attack", wheezing Onset/Timin -: days(s) Asthma History: history of frequent attac Severity: moderate Context: ran out of meds, medication non-compliance Treatments Prior to Arrival: inhaled bronchodilator - Related Data Current Asthma Therapy: inhaled bronchodilator, inhaled steroid Home Medications Medication Instructions Recorded Confirmed Last Taken metFORMIN [Glucophage] 1,000 mg PO DAILY 12/26/13 12/26/13 Unknown Previous Rx's Medication Instructions Recorded Last Taken Type Ondansetron [Zofran TAB] 4 mg PO Q8HR PRN #15 tablet 10/30/16 Unknown Rx traMADol [Ultram 50 MG tab] 50 mg PO Q6HR PRN #15 tablet 10/30/16 Unknown Rx Cyclobenzaprine [Flexeril] 10 mg PO TID PRN #12 tablet 12/04/16 Unknown Rx ALBUTEROL Inhaler [ProAir HFA 1 puff INHALATION Q4H PRN #1 inha 12/11/16 Unknown Rx Inhaler] methylPREDNISolone [Medrol Dose 4 mg PO DAILY #1 tab.ds.pk 12/11/16 Unknown Rx Anastasia] ALBUTEROL NEB's [Proventil 0.083% 2.5 mg INHALATION Q4H PRN #25 units 04/02/17 Unknown Rx NEBS] Azithromycin [Zithromax Z-ANASTASIA] 250 mg PO QDAY #6 tablet 04/02/17 Unknown Rx predniSONE [Deltasone] 20 mg PO QDAY #4 tab 04/02/17 Unknown Rx ALBUTEROL Inhaler [ProAir HFA 2 puff IH QID PRN #1 inhalation 05/12/17 Unknown Rx Inhaler] Albuterol Sulfate [Albuterol 0.63% 0.63 mg IH TID PRN #1 box 05/12/17 Unknown Rx NEBS] Fluconazole [Diflucan TAB] 150 mg PO ONCE #1 tablet 05/12/17 Unknown Rx Fluticasone/Salmeterol [Advair 1 puff INHALATION Q12H #1 05/12/17 Unknown Rx 250-50 Diskus] blst.w.dev metFORMIN [Glucophage] 500 mg PO BID #60 tablet 05/12/17 Unknown Rx predniSONE [Deltasone] 10 mg PO QDAY #4 tab 05/12/17 Unknown Rx Allergies Allergy/AdvReac Type Severity Reaction Status Date / Time No Known Allergies Allergy Verified 05/12/17 09:05 ED Review of Systems ROS: Stated complaint: ASTHMA, COUGH, WHEEZING X 2 DAYS Other details as noted in HPI Constitutional: denies: chills, fever Eyes: denies: eye pain, eye discharge, vision change ENT: denies: ear pain, throat pain Respiratory: shortness of breath, wheezing. denies: cough Cardiovascular: denies: chest pain, palpitations Endocrine: no symptoms reported Gastrointestinal: denies: abdominal pain, nausea, diarrhea Genitourinary: denies: urgency, dysuria, discharge Musculoskeletal: denies: back pain, joint swelling, arthralgia Skin: denies: rash, lesions Neurological: denies: headache, weakness, paresthesias Psychiatric: denies: anxiety, depression Hematological/Lymphatic: denies: easy bleeding, easy bruising ED Past Medical Hx - Past Medical History Hx Diabetes: Yes (gestational / BORDERLINE) Hx Asthma: Yes Additional medical history: OBESITY. "MUSCLE SPASMS" - Surgical History Additional Surgical History: R Foot - Social History Smoking Status: Current Every Day Smoker Substance Use Type: None - Medications Home Medications: Home Medications Medication Instructions Recorded Confirmed Last Taken Type metFORMIN [Glucophage] 1,000 mg PO DAILY 12/26/13 12/26/13 Unknown History Ondansetron [Zofran TAB] 4 mg PO Q8HR PRN #15 tablet 10/30/16 Unknown Rx traMADol [Ultram 50 MG tab] 50 mg PO Q6HR PRN #15 tablet 10/30/16 Unknown Rx Cyclobenzaprine [Flexeril] 10 mg PO TID PRN #12 tablet 12/04/16 Unknown Rx ALBUTEROL Inhaler [ProAir HFA 1 puff INHALATION Q4H PRN #1 inha 12/11/16 Unknown Rx Inhaler] methylPREDNISolone [Medrol Dose 4 mg PO DAILY #1 tab.ds.pk 12/11/16 Unknown Rx Anastasia] ALBUTEROL NEB's [Proventil 0.083% 2.5 mg INHALATION Q4H PRN #25 units 04/02/17 Unknown Rx NEBS] Azithromycin [Zithromax Z-ANASTASIA] 250 mg PO QDAY #6 tablet 04/02/17 Unknown Rx predniSONE [Deltasone] 20 mg PO QDAY #4 tab 04/02/17 Unknown Rx ALBUTEROL Inhaler [ProAir HFA 2 puff IH QID PRN #1 inhalation 05/12/17 Unknown Rx Inhaler] Albuterol Sulfate [Albuterol 0.63% 0.63 mg IH TID PRN #1 box 05/12/17 Unknown Rx NEBS] Fluconazole [Diflucan TAB] 150 mg PO ONCE #1 tablet 05/12/17 Unknown Rx Fluticasone/Salmeterol [Advair 1 puff INHALATION Q12H #1 05/12/17 Unknown Rx 250-50 Diskus] blst.w.dev metFORMIN [Glucophage] 500 mg PO BID #60 tablet 05/12/17 Unknown Rx predniSONE [Deltasone] 10 mg PO QDAY #4 tab 05/12/17 Unknown Rx ED Physical Exam - General Limitations: No Limitations General appearance: alert, in no apparent distress - Head Head exam: Present: atraumatic, normocephalic - Eye Eye exam: Present: normal appearance, PERRL (patient has has poor pupillary reflex right eye, chronic blindness), EOMI - ENT ENT exam: Present: mucous membranes moist - Neck Neck exam: Present: normal inspection - Respiratory Respiratory exam: Present: wheezes (patient has bilateral wheezes in both lung ballard). Absent: respiratory distress - Cardiovascular Cardiovascular Exam: Present: regular rate, normal rhythm. Absent: systolic murmur, diastolic murmur, rubs, gallop - GI/Abdominal GI/Abdominal exam: Present: soft, normal bowel sounds - Extremities Exam Extremities exam: Present: normal inspection - Back Exam Back exam: Present: normal inspection - Neurological Exam Neurological exam: Present: alert, oriented X3 - Psychiatric Psychiatric exam: Present: normal affect, normal mood - Skin Skin exam: Present: warm, dry, intact, normal color. Absent: rash ED Course Vital Signs 05/12/17 05/12/17 05/12/17 09:00 10:45 10:55 Temperature 97.5 F L Pulse Rate 97 H Pulse Rate [ 80 83 Posterior Bilateral Throughout] Respiratory 18 Rate Respiratory 18 18 Rate [Posterior Bilateral Throughout] Blood Pressure 126/87 Blood Pressure [Left] O2 Sat by Pulse 96 Oximetry 05/12/17 05/12/17 13:06 13:36 Temperature 98.6 F Pulse Rate 84 Pulse Rate [ 88 Posterior Bilateral Throughout] Respiratory 20 Rate Respiratory 16 Rate [Posterior Bilateral Throughout] Blood Pressure Blood Pressure 128/74 [Left] O2 Sat by Pulse 100 Oximetry ED Medical Decision Making - Lab Data Result diagrams: 05/12/17 10:44 05/12/17 10:44 - Medical Decision Making A/P: Asthma exacerbation, hyperglycemia, hyponatremia, poorly controlled diabetes, vaginal discharge 1-patient left AGAINST MEDICAL ADVICE. Patient stated she understood my clinical concerns but she could not stay for further management or observation. I advised her that she is hyperglycemic and requires IV fluid resuscitation to reduce hyperglycemia and to replenish hyponatremia. Patient is also still wheezing slightly before discharge. Patient states she has personal matters she must attend to and cannot stay for further treatment 2-I advised patient to follow up with primary care or return to ED as soon as possible 3-provided patient with prescriptions for her asthma medicines. We'll give low- dose short course of prednisone as patient does exhibit some hyperglycemia during this clinical assessment Critical care attestation.: If time is entered above; I have spent that time in minutes in the direct care of this critically ill patient, excluding procedure time. ED Disposition Clinical Impression: Hyperglycemia, Vaginal itching, Left against medical advice Asthma Qualifiers: Asthma severity: mild intermittent Asthma complication type: with status asthmaticus Qualified Code(s): J45.22 - Mild intermittent asthma with status asthmaticus Disposition: DC-07 LEFT AGAINST MED ADVICE Is pt being admited?: No Does the pt Need Aspirin: No Condition: Stable Instructions: Asthma (ED), Diabetic Hyperglycemia (ED) Prescriptions: ALBUTEROL Inhaler [ProAir HFA Inhaler] 2 puff IH QID PRN #1 inhalation PRN Reason: Shortness Of Breath Albuterol Sulfate [Albuterol 0.63% NEBS] 0.63 mg IH TID PRN #1 box PRN Reason: Wheezing Fluconazole [Diflucan TAB] 150 mg PO ONCE #1 tablet Fluticasone/Salmeterol [Advair 250-50 Diskus] 1 puff INHALATION Q12H #1 blst.w.dev metFORMIN [Glucophage] 500 mg PO BID #60 tablet predniSONE [Deltasone] 10 mg PO QDAY #4 tab Referrals: [facility] [Provider Group] - 3-5 Days [facility] [Outside] - 3-[address] [facility] [Outside] - 3-5 Days Forms: AMA Form Time of Disposition: 15:48
[2017-05-12 11:13] LABS: Basophils % (Auto) 1.4 % (0.0-1.8); Eosinophils % (Auto) 2.4 % (0.0-4.3); Hematocrit 48.5 % (30.3-42.9); Hemoglobin 16.5 gm/dl (10.1-14.3); Mean Corpuscular HGB Conc 34 % (30-34); Mean Corpuscular Hemoglobin 32 pg (28-32); Mean Corpuscular Volume 93 fl (79-97); Platelet Count 330 K/mm3 (140-440); Red Blood Count 5.24 M/mm3 (3.65-5.03); Red Cell Distribution Width 14.7 % (13.2-15.2); White Blood Count 11.6 K/mm3 (4.5-11.0)
[2017-05-12 11:22] LABS: Anion Gap 22 mmol/L; BUN/Creatinine Ratio 11.42; Blood Urea Nitrogen 8 mg/dL (7-17); Calcium 9.7 mg/dL (8.4-10.2); Carbon Dioxide 19 mmol/L (22-30); Chloride 93.4 mmol/L (98-107); Glucose 357 mg/dL (65-100); Potassium 4.1 mmol/L (3.6-5.0); Sodium 130 mmol/L (137-145)
--- NOTE | 2017-05-12 11:30 | XRay Report ---
Chest 2 views: Compared to 07/17/15. History: wheezing. Findings: Normal cardiomediastinal silhouette the trachea is midline. No consolidation, pneumothorax or pleural effusion. Impression: No acute lung changes.
[2017-05-12 13:37] VITALS: BP 128/74
== END 2017-05-12 13:39 | disposition left against medical advice (07) ==
LOC: ED 08:06
DX: J45.22 Mild intermittent asthma with status asthmaticus (principal); N89.8 Other specified noninflammatory disorders of vagina; R73.9 Hyperglycemia, unspecified; F17.200 Nicotine dependence, unspecified, uncomplicated
CPT/HCPCS: 36415; 71020; 80048; 82962; 85025; 94640; 99284; J7512

== ENCOUNTER 2017-07-14 00:40 | Emergency (ER) | payer MEDICAID ==
--- NOTE | 2017-07-14 03:12 | Emergency Department Report ---
HPI - General Chief Complaint: Upper Respiratory Infection Time Seen by Provider: 07/14/17 03:12 - HPI HPI: Patient here reports that she came to the emergency room because she is having cough for 2 days. Patient reports his cough is productive. Patient said that she thinks her asthma is acting up. She says she's been using her albuterol inhaler and nebulizer at home and is not helping. Patient said that she had 4 ED visit for the year and this is her fist. She says she was intubated once as a child for asthma. She denies any difficulty swallowing or sore throat. She said prior to this attack she has nasal congestion and runny nose. Denies any chest pain but says she has back pain when she coughed. 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 She denies any fever or chills. Denies any abdominal pain. Denies any urinary frequency urgency or burning. Pain to upper back with coughing only. Pain is 5 out of 10. It was reported on triage nurse sheet that patient was having pain to her chest but she says she is not having chest pain she is having pain to her back 5 out of 10 only with coughing and it feels sore. No [id number] medication taken prior to coming to the emergency room for pain. ED Past Medical Hx - Past Medical History Previous Medical History?: Yes Hx Diabetes: Yes (gestational / BORDERLINE) Hx Asthma: Yes Additional medical history: OBESITY. "MUSCLE SPASMS" - Surgical History Past Surgical History?: Yes Additional Surgical History: R Foot - Family History Family history: hypertension - Social History Smoking Status: Current Every Day Smoker Substance Use Type: None - Medications Home Medications: Home Medications Medication Instructions Recorded Confirmed Last Taken Type metFORMIN [Glucophage] 1,000 mg PO BID 12/26/13 07/14/17 3 Days Ago History ~07/11/17 ALBUTEROL NEB's [Proventil 0.083% 2.5 mg INHALATION Q4H PRN #25 units 04/02/17 07/14/17 Unknown Rx NEBS] ALBUTEROL Inhaler [ProAir HFA 2 puff IH QID PRN #1 inhalation 05/12/17 07/14/17 Unknown Rx Inhaler] Aspirin 325 mg PO DAILY 07/14/17 07/14/17 3 Days Ago History ~07/11/17 Cetirizine HCl [ZyrTEC] 10 mg PO QAM 14 Days #14 capsule 07/14/17 Unknown Rx Cyclobenzaprine [Flexeril] 10 mg PO TID 07/14/17 07/14/17 3 Days Ago History ~07/11/17 Fluticasone [Flonase] 1 spray NS QDAY 14 Days #1 bottle 07/14/17 Unknown Rx Gabapentin [Neurontin] 300 mg PO Q8HR 07/14/17 07/14/17 3 Days Ago History ~07/11/17 Lisinopril [Zestril] 5 mg PO QDAY 07/14/17 07/14/17 3 Days Ago History ~07/11/17 Sitagliptin Phosphate [Januvia] 100 mg PO DAILY 07/14/17 07/14/17 3 Days Ago History ~07/11/17 guaiFENesin/CODEINE [Robitussin AC] 10 ml PO QHS PRN 7 Days #70 07/14/17 Unknown Rx oral.liqd methylPREDNISolone [Medrol Dose 4 mg PO QAM 6 Days #1 pack 07/14/17 Unknown Rx Aditya] ED Review of Systems ROS: Stated complaint: BACK PAIN Other details as noted in HPI Comment: All other systems reviewed and negative Constitutional: no symptoms reported ENT: congestion (runny nose). denies: ear pain, throat pain Respiratory: cough, SOB with exertion, wheezing. denies: orthopnea, shortness of breath, SOB at rest, stridor Cardiovascular: dyspnea on exertion (over the past 2 days). denies: chest pain , palpitations, orthopnea, edema, syncope, paroxysmal nocturnal dyspnea Gastrointestinal: denies: abdominal pain, nausea, vomiting, diarrhea, constipation Genitourinary: denies: urgency, dysuria, frequency, hematuria, discharge Musculoskeletal: back pain (with coughing to upper back). denies: joint swelling, arthralgia, myalgia Skin: denies: rash Neurological: denies: headache, weakness, numbness, paresthesias, confusion, abnormal gait, vertigo Physical Exam - Physical Exam Vital Signs: Vital Signs 07/14/17 01:38 Temperature 98.0 F Pulse Rate 105 H Blood Pressure 141/85 O2 Sat by Pulse 95 Oximetry Vital Signs 07/14/17 07/14/17 07/14/17 01:38 04:26 04:39 Temperature 98.0 F Pulse Rate 105 H Pulse Rate [ 104 H Anterior Bilateral Throughout] Respiratory 18 Rate Respiratory 20 Rate [Anterior Bilateral Throughout] Blood Pressure 141/85 O2 Sat by Pulse 95 Oximetry 07/14/17 05:32 Temperature Pulse Rate Pulse Rate [ 109 H Anterior Bilateral Throughout] Respiratory Rate Respiratory 20 Rate [Anterior Bilateral Throughout] Blood Pressure O2 Sat by Pulse Oximetry Vital Signs 07/14/17 07/14/17 07/14/17 01:38 04:26 04:39 Temperature 98.0 F Pulse Rate 105 H Pulse Rate [ 104 H Anterior Bilateral Throughout] Respiratory 18 Rate Respiratory 20 Rate [Anterior Bilateral Throughout] Blood Pressure 141/85 Blood Pressure [Left] O2 Sat by Pulse 95 Oximetry 07/14/17 07/14/17 05:32 07:06 Temperature 98.6 F Pulse Rate 99 H Pulse Rate [ 109 H Anterior Bilateral Throughout] Respiratory 18 Rate Respiratory 20 Rate [Anterior Bilateral Throughout] Blood Pressure Blood Pressure 125/69 [Left] O2 Sat by Pulse 97 Oximetry General: This is a 37-year-old female well-nourished well-developed but in moderate distress from asthma. Physical Exam: Head: Normocephalic, atraumatic, no abrasion, no bruising and no contusion. Eyes: Biateral pupils equal and reactive to light, bilateral EOM intact.. Bilateral conjunctival and sclera without injection, normal accommodation. No nystagmus Ears: Bilateral TMs congested. Edison EAC normal bilateral nasal mucosa congested. erythema with clear drainage.. No maxillary or frontal sinus tenderness. No mastoid bone tenderness. Mouth: Moist, no pharyngeal exudate or erythema. Uvula is midline and tongue is normal. Oral airways patent. Neck: Supple, No Cervical adenopathy, full range of motion and no C-spine tenderness. No swelling or tracheal deviation normal reflexes Cardiovascular: S1, S2. Regular rate and rhythm. No murmur. Capillary refill is less then 3 seconds. Lungs: wheezing throughout lung ballard, increase work of breathing, Congested cough. No chest wall tenderness, no Crepitus MSK: Strength 5/5 in all extremities. No joint deformity or crepitus. Normal inspection. Full range of motion to all extremities Extremities: No clubbing, cyanosis or edema. +2 pulses. No neurovascular compromise Skin: Clean, dry and intact. No rash or lesions. Neurological: GCS at 15, Pt is alert and oriented 3 speech is clear. No focal neurological deficit Back: No vertebral tenderness, no paraspinal tenderness. The bend over and touch his toes without any difficulties. Ambulates without any difficulties. Psych: mild anxiety. ED Course Vital Signs 07/14/17 01:38 Temperature 98.0 F Pulse Rate 105 H Blood Pressure 141/85 O2 Sat by Pulse 95 Oximetry Vital Signs 07/14/17 07/14/17 07/14/17 01:38 04:26 04:39 Temperature 98.0 F Pulse Rate 105 H Pulse Rate [ 104 H Anterior Bilateral Throughout] Respiratory 18 Rate Respiratory 20 Rate [Anterior Bilateral Throughout] Blood Pressure 141/85 Blood Pressure [Left] O2 Sat by Pulse 95 Oximetry 07/14/17 07/14/17 05:32 07:06 Temperature 98.6 F Pulse Rate 99 H Pulse Rate [ 109 H Anterior Bilateral Throughout] Respiratory 18 Rate Respiratory 20 Rate [Anterior Bilateral Throughout] Blood Pressure Blood Pressure 125/69 [Left] O2 Sat by Pulse 97 Oximetry - Reevaluation(s) Reevaluation #1: 07/14/17 04:00 Patient is stable and she is currently getting an albuterol and Atrovent nebulizer. She is on magnesium sulfate 2 g IV, she received Solu-Medrol 125 mg IV. No acute distress. Reevaluation #2: 07/14/17 05:26 Patient is stable, she said she was having back pain with coughing so she received Ultram 50 mg by mouth and she still get in treatment. Patient white count is normal, test is negative. Chemistry result revealed that her blood sugar is 357 and her sodium is 131 along with decrease in chloride which is expected. Patient is started on normal saline 1 L. She is stable at present. Chest x-ray is negative for any cardiopulmonary abnormality. Reevaluation #3: 07/14/17 07:36 Repeat blood sugar 257 after 1 L of IV fluid and 6 units of regular insulin IV. Patient says she is much better. Her lungs remained clear and her vital signs are normal. ED Medical Decision Making - Lab Data Result diagrams: 07/14/17 04:11 07/14/17 04:11 Lab Results 07/14/17 07/14/17 07/14/17 Range/Units 01:48 04:11 04:11 WBC 10.3 (4.5-11.0) K/mm3 RBC 4.87 (3.65-5.03) M/mm3 Hgb 15.1 H (10.1-14.3) gm/dl Hct 46.1 H (30.3-42.9) % MCV 95 (79-97) fl MCH 31 (28-32) pg MCHC 33 (30-34) % RDW 14.7 (13.2-15.2) % Plt Count 285 (140-440) K/mm3 Lymph % (Auto) 20.7 (13.4-35.0) % Union % (Auto) 5.5 (0.0-7.3) % Eos % (Auto) 3.2 (0.0-4.3) % Baso % (Auto) 0.3 (0.0-1.8) % Lymph # 2.1 (1.2-5.4) K/mm3 Union # 0.6 (0.0-0.8) K/mm3 Eos # 0.3 (0.0-0.4) K/mm3 Baso # 0.0 (0.0-0.1) K/mm3 Seg Neutrophils % 70.3 H (40.0-70.0) % Seg Neutrophils # 7.3 (1.8-7.7) K/mm3 Sodium 131 L (137-145) mmol/L Potassium 4.4 (3.6-5.0) mmol/L Chloride 93.1 L (98-107) mmol/L Carbon Dioxide 24 (22-30) mmol/L Anion Gap 18 mmol/L BUN 6 L (7-17) mg/dL Creatinine 0.7 (0.7-1.2) mg/dL Estimated GFR > 60 ml/min BUN/Creatinine Ratio 9 % Glucose 357 H (65-100) mg/dL Calcium 9.7 (8.4-10.2) mg/dL HCG, Qual Negative (Negative) Vital Signs 07/14/17 07/14/17 07/14/17 01:38 04:26 04:39 Temperature 98.0 F Pulse Rate 105 H Pulse Rate [ 104 H Anterior Bilateral Throughout] Respiratory 18 Rate Respiratory 20 Rate [Anterior Bilateral Throughout] Blood Pressure 141/85 Blood Pressure [Left] O2 Sat by Pulse 95 Oximetry 07/14/17 07/14/17 05:32 07:06 Temperature 98.6 F Pulse Rate 99 H Pulse Rate [ 109 H Anterior Bilateral Throughout] Respiratory 18 Rate Respiratory 20 Rate [Anterior Bilateral Throughout] Blood Pressure Blood Pressure 125/69 [Left] O2 Sat by Pulse 97 Oximetry - Radiology Data Radiology results: report reviewed No acute cardiopulmonary processes - Medical Decision Making ED Course: Patient here complaining of asthma preceded by URI. She reports using her albuterol neb and inhaler without relief. Patient found to have asthma exacerbation, URI with cough and congestion. Labs with normal wbc, sodium at 131 patient replete with 1 liter ns. BG over 300 on chemistry. Patient given 6 units regular insulin with BG now at 227. Patient seen drinking regular coke. She is on oral meds for diabetes. Chest xray with normal findings. Patient treated with 10 mg albuterol and 0.5 mg Atrovent nebulizer, she was given 2 grams magnesium sulfate and 125 mg solumedrol for moderate persistent asthma. Patient said she felt better after treatment and asking to go home. She was also given Ultram 50 mg po for back pain when coughing. VSS, Afeb. Discharge home to follow up with PCP on 07/16/2017. Prescription given for medrol dose pack, zyrtec, flonase and Guaifenesin with codeine cough syrup. Discharge from ed in stable condition. Smoking cesation encouraged Critical care attestation.: If time is entered above; I have spent that time in minutes in the direct care of this critically ill patient, excluding procedure time. ED Disposition Clinical Impression: URI with cough and congestion, Hyponatremia, Nicotine abuse Acute asthma exacerbation Qualifiers: Asthma severity: moderate Asthma persistence: persistent Qualified Code(s): J45.41 - Moderate persistent asthma with (acute) exacerbation Hyperglycemia due to type 2 diabetes mellitus Qualifiers: Diabetes mellitus mcfp insulin use: without mcfp use Qualified Code(s ): E11.65 - Type 2 diabetes mellitus with hyperglycemia Disposition: DC-01 TO HOME OR SELFCARE Is pt being admited?: No Does the pt Need Aspirin: No Condition: Stable Instructions: Asthma (ED), How to Stop Smoking (ED), Hyponatremia (ED), Diabetes Mellitus Type 2 in Adults (ED), Acute Cough (ED) Additional Instructions: Please stop smoking as this is not good for your asthma. Diabetes. Please do not drink any more cold or carbonated beverages. This is not but free kidneys and will spike your blood sugar. Please take albuterol nebulizer every 4 hours for the next 48 hours and then as needed. Use Medrol Dosepak as directed F/U primary care physician on 07/16/2017. Your sodium was low in the emergency room and your given IV fluid. If your symptoms return, please return to the emergency room otherwise follow- up with her primary care physician Please do not drive or operate heavy machinery while taking cough medicine that this medication causes drowsiness. Prescriptions: guaiFENesin/CODEINE [Robitussin AC] 10 ml PO QHS PRN 7 Days #70 oral.liqd PRN Reason: Cough Cetirizine HCl [ZyrTEC] 10 mg PO QAM 14 Days #14 capsule Fluticasone [Flonase] 1 spray NS QDAY 14 Days #1 bottle methylPREDNISolone [Medrol Dose Daitya] 4 mg PO QAM 6 Days #1 pack Referrals: LEOPOLDO GUILLEN MD [Primary Care Provider] - 07/16/17 Forms: Work/School Release Form(ED)
[2017-07-14] MEDS ORDERED: PROVENTIL IH ONE (03:35)
[2017-07-14] MEDS ORDERED: PEPCID IV ONE (03:35)
[2017-07-14] MEDS ORDERED: ATROVENT IH ONE (03:35)
[2017-07-14] MEDS ORDERED: MAGNESIUM SULFATE 2GM/50ML 2 GM/50 ML BAG IV ONE (03:35)
[2017-07-14] MEDS ORDERED: ULTRAM PO ONE (03:39)
[2017-07-14 04:32] LABS: Basophils % (Auto) 0.3 % (0.0-1.8); Eosinophils % (Auto) 3.2 % (0.0-4.3); Hematocrit 46.1 % (30.3-42.9); Hemoglobin 15.1 gm/dl (10.1-14.3); Mean Corpuscular HGB Conc 33 % (30-34); Mean Corpuscular Hemoglobin 31 pg (28-32); Mean Corpuscular Volume 95 fl (79-97); Platelet Count 285 K/mm3 (140-440); Red Blood Count 4.87 M/mm3 (3.65-5.03); Red Cell Distribution Width 14.7 % (13.2-15.2); White Blood Count 10.3 K/mm3 (4.5-11.0)
[2017-07-14 04:34] LABS: Anion Gap 18 mmol/L; BUN/Creatinine Ratio 9; Blood Urea Nitrogen 6 mg/dL (7-17); Calcium 9.7 mg/dL (8.4-10.2); Carbon Dioxide 24 mmol/L (22-30); Chloride 93.1 mmol/L (98-107); Glucose 357 mg/dL (65-100); Potassium 4.4 mmol/L (3.6-5.0); Sodium 131 mmol/L (137-145)
--- NOTE | 2017-07-14 04:54 | XRay Report ---
FINAL REPORT EXAM: XR CHEST ROUTINE 2V HISTORY: cough TECHNIQUE: PA and lateral views of the chest were submitted. FINDINGS: Heart size and mediastinum appear normal. The lungs are clear. Pleural fluid is not seen. The bones and soft tissues reveal disc degeneration in the thoracic spine. IMPRESSION: No active chest disease.
[2017-07-14] MEDS ORDERED: NACL 0.9% 1000 ML 1,000 ML IV ONE (05:26)
[2017-07-14 07:11] VITALS: BP 125/69
== END 2017-07-14 07:42 | disposition home or self-care (01) ==
LOC: ED 00:40
DX: J45.41 Moderate persistent asthma with (acute) exacerbation (principal); E11.65 Type 2 diabetes mellitus with hyperglycemia; J06.9 Acute upper respiratory infection, unspecified; E87.1 Hypo-osmolality and hyponatremia; F17.200 Nicotine dependence, unspecified, uncomplicated
CPT/HCPCS: 36415; 71020; 80048; 82962; 84703; 85025; 94644; 96361; 96365; 96375; 99284; J2930; J3475; J7030; J1815

== ENCOUNTER 2017-08-01 18:25 | Emergency (ER) | payer MEDICAID ==
[2017-08-01] MEDS ORDERED: ZOFRAN IV ONE (19:59)
[2017-08-01] MEDS ORDERED: TORADOL IV ONE (19:59)
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
[2017-08-01 21:12] LABS: Albumin 4.1 g/dL (3.9-5); Albumin/Globulin Ratio 1.6 %; Bilirubin,Direct 0.2 mg/dL (0-0.2); Bilirubin,Indirect 0.6 mg/dL; Bilirubin,Total 0.8 mg/dL (0.1-1.2); Total Protein 6.7 g/dL (6.3-8.2)
[2017-08-01 21:14] LABS: Anion Gap 24 mmol/L; BUN/Creatinine Ratio 15; Basophils % (Auto) 0.4 % (0.0-1.8); Blood Urea Nitrogen 9 mg/dL (7-17); Calcium 9.4 mg/dL (8.4-10.2); Carbon Dioxide 20 mmol/L (22-30); Chloride 94.9 mmol/L (98-107); Eosinophils % (Auto) 2.3 % (0.0-4.3); Glucose 276 mg/dL (65-100); Hematocrit 49.8 % (30.3-42.9); Hemoglobin 16.7 gm/dl (10.1-14.3); Mean Corpuscular HGB Conc 34 % (30-34); Mean Corpuscular Hemoglobin 31 pg (28-32); Mean Corpuscular Volume 93 fl (79-97); Platelet Count 340 K/mm3 (140-440); Potassium 4.1 mmol/L (3.6-5.0); Red Blood Count 5.36 M/mm3 (3.65-5.03); Sodium 135 mmol/L (137-145); White Blood Count 10.3 K/mm3 (4.5-11.0)
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
[2017-08-01 21:28] LABS: INR 1.15 (0.87-1.13)
[2017-08-01 21:37] LABS: Bilirubin,Urine NEG (Negative); Blood,Urine SM (Negative); Ketones,Urine NEG (Negative); Leukocyte Esterase,Urine SM (Negative); Mucus,Urine 2+ /HPF; Nitrite,Urine NEG (Negative); Urobilinogen,Urine < 2.0 mg/dL (<2.0)
--- NOTE | 2017-08-01 22:43 | Cat Scan Report ---
FINAL REPORT PROCEDURE: CT ABDOMEN PELVIS W CON TECHNIQUE: Computerized axial tomography of the abdomen and pelvis was performed after the IV injection of iodinated nonionic contrast. HISTORY: Abdominal Pain COMPARISON: No prior studies are available for comparison. FINDINGS: Visualized lower thorax: No significant abnormality. Liver: Liver is enlarged and fatty. There is no discrete mass.. Spleen: Normal size and attenuation. Gallbladder and biliary system: Normal. Pancreas: Normal. Adrenals: Normal. Kidneys: Normal. GI tract: There are thickened loops of small bowel suggesting regional enteritis. Bowel ischemia is considered less likely but not excluded. There is no mechanical obstruction. The colon and appendix are normal. The stomach is unremarkable.. Lymph nodes and mesentery: Normal. 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 This can best be appreciated on the sagittal reformatted series image 102.. Bladder: Normal. Reproductive organs: Uterus is unremarkable. There is an incidental cyst in the right ovary measuring 3.2 centimeters.. Peritoneum: There is a small amount of free pelvic fluid. There is no free air. There are borderline enlarged mesenteric and retroperitoneal lymph nodes which are nonspecific but could be reactive.. Musculoskeletal structures: No significant abnormality. Other: None. IMPRESSION: Liver is enlarged and fatty. There is no discrete mass.. There are thickened loops of small bowel suggesting regional enteritis. Bowel ischemia is considered less likely but not excluded. There is no mechanical obstruction. The colon and appendix are normal. The stomach is unremarkable.. 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 This can best be appreciated on the sagittal reformatted series image 102.. There is an incidental cyst in the right ovary measuring 3.2 centimeters.. There is a small amount of free pelvic fluid. There is no free air. There are borderline enlarged mesenteric and retroperitoneal lymph nodes which are nonspecific but could be reactive..
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
[2017-08-02] MEDS ORDERED: DILAUDID IM ONE (00:51)
[2017-08-02] MEDS ORDERED: NACL 0.9% 1000 ML 1,000 ML IV ONE (00:51)
[2017-08-02] MEDS ORDERED: DILAUDID ONE (01:10)
[2017-08-02] MEDS ORDERED: DILAUDID IV ONE (01:15)
[2017-08-02 02:32] VITALS: BP 120/70
== END 2017-08-02 04:05 | disposition other institution (70) ==
LOC: ED 18:25
DX: K55.069 Acute infarction of intestine, part and extent unspecified (principal); I77.79 Dissection of other specified artery; R10.9 Unspecified abdominal pain; F17.200 Nicotine dependence, unspecified, uncomplicated; J45.909 Unspecified asthma, uncomplicated
CPT/HCPCS: 36415; 74177; 80048; 80074; 81001; 82140; 83690; 84703; 85025; 85610; 96361; 96374; 96375; 99291; J1170; J1885; J2405; J7030; Q9967

== ENCOUNTER 2017-09-01 13:08 | Emergency (ER) | payer MEDICAID ==
[2017-09-01] MEDS ORDERED: ASPIRIN PO ONE (14:21)
[2017-09-01] MEDS ORDERED: BABY ASPIRIN ONE (14:23)
[2017-09-01] MEDS ORDERED: BABY ASPIRIN PO ONE (14:24)
[2017-09-01 15:07] LABS: Basophils % (Auto) 0.4 % (0.0-1.8); Eosinophils # (Auto) 0.2 K/mm3 (0.0-0.4); Eosinophils % (Auto) 2.1 % (0.0-4.3); Hematocrit 45.3 % (30.3-42.9); Hemoglobin 15.1 gm/dl (10.1-14.3); Lymphocytes # (Auto) 2.5 K/mm3 (1.2-5.4); Lymphocytes % (Auto) 24.8 % (13.4-35.0); Mean Corpuscular HGB Conc 33 % (30-34); Mean Corpuscular Hemoglobin 31 pg (28-32); Mean Corpuscular Volume 93 fl (79-97); Monocytes # (Auto) 0.4 K/mm3 (0.0-0.8); Monocytes % (Auto) 3.5 % (0.0-7.3); Platelet Count 293 K/mm3 (140-440); Red Blood Count 4.87 M/mm3 (3.65-5.03); Red Cell Distribution Width 14.5 % (13.2-15.2)
[2017-09-01 15:21] LABS: BUN/Creatinine Ratio 13; Blood Urea Nitrogen 8 mg/dL (7-17); Calcium 9.9 mg/dL (8.4-10.2); Hemolysis Index 11
--- NOTE | 2017-09-01 15:50 | XRay Report ---
FINAL REPORT PROCEDURE: XR CHEST ROUTINE 2V TECHNIQUE: PA lateral chest HISTORY: CP COMPARISON: 07/14/2017 FINDINGS: Heart is not enlarged. Mild to moderate central peribronchial cuffing with bronchovascular sheath thickening. Possible central bronchitis without infiltrate. Possible left perihilar atelectasis IMPRESSION: Mild central bronchitis with possible left perihilar infrahilar atelectasis
[2017-09-01 20:41] VITALS: BP 152/83
== END 2017-09-01 22:30 | disposition left against medical advice (07) ==
LOC: ED 13:08
DX: R07.9 Chest pain, unspecified (principal); Z53.21 Procedure and treatment not carried out due to patient leaving prior to being seen by health care provider
CPT/HCPCS: 36415; 71046; 80048; 84484; 85025; 93005; 93010

== ENCOUNTER 2017-09-04 07:31 | Emergency (ER) | payer MEDICAID ==
[2017-09-04 07:45] VITALS: BP 149/93
[2017-09-04 08:17] LABS: Basophils % (Auto) 0.4 % (0.0-1.8); Eosinophils # (Auto) 0.2 K/mm3 (0.0-0.4); Hematocrit 42.4 % (30.3-42.9); Lymphocytes # (Auto) 1.9 K/mm3 (1.2-5.4); Mean Corpuscular HGB Conc 33 % (30-34); Mean Corpuscular Hemoglobin 31 pg (28-32); Mean Corpuscular Volume 92 fl (79-97); Monocytes # (Auto) 0.4 K/mm3 (0.0-0.8); Monocytes % (Auto) 5.7 % (0.0-7.3); Platelet Count 267 K/mm3 (140-440); Red Blood Count 4.58 M/mm3 (3.65-5.03); Red Cell Distribution Width 14.2 % (13.2-15.2)
--- NOTE | 2017-09-04 08:21 | XRay Report ---
ROUTINE CHEST, TWO VIEWS: HISTORY: Shortness of breath. The trachea, heart, mediastinal contour, lung ballard and bony thorax are unremarkable. IMPRESSION: Unremarkable chest x-ray. No significant change since 09/01/17.
[2017-09-04 08:35] LABS: BUN/Creatinine Ratio 17; Blood Urea Nitrogen 10 mg/dL (7-17); Calcium 9.5 mg/dL (8.4-10.2); Hemolysis Index 45
== END 2017-09-04 08:00 | disposition left against medical advice (07) ==
LOC: ED 07:31
DX: Z53.21 Procedure and treatment not carried out due to patient leaving prior to being seen by health care provider (principal)
CPT/HCPCS: 36415; 71046; 80048; 85025; 93005; 93010

== ENCOUNTER 2017-10-09 06:52 | Emergency (ER) | payer MEDICAID ==
[2017-10-09 07:28] VITALS: BP 135/90
[2017-10-09 08:01] LABS: Alanine Aminotransferase 27 units/L (7-56); Albumin 3.7 g/dL (3.9-5); BUN/Creatinine Ratio 12; Blood Urea Nitrogen 7 mg/dL (7-17); Calcium 9.1 mg/dL (8.4-10.2); Hemolysis Index 12; Lipase 15 units/L (13-60)
[2017-10-09 08:03] LABS: Basophils % (Auto) 0.3 % (0.0-1.8); Eosinophils # (Auto) 0.2 K/mm3 (0.0-0.4); Eosinophils % (Auto) 1.7 % (0.0-4.3); Hematocrit 44.4 % (30.3-42.9); Hemoglobin 14.9 gm/dl (10.1-14.3); Lymphocytes # (Auto) 1.9 K/mm3 (1.2-5.4); Mean Corpuscular HGB Conc 34 % (30-34); Mean Corpuscular Hemoglobin 30 pg (28-32); Mean Corpuscular Volume 91 fl (79-97); Monocytes # (Auto) 0.5 K/mm3 (0.0-0.8); Monocytes % (Auto) 4.2 % (0.0-7.3); Platelet Count 307 K/mm3 (140-440); Red Blood Count 4.89 M/mm3 (3.65-5.03)
[2017-10-09 09:42] LABS: HCG Qualitative,Urine Negative (Negative)
[2017-10-09 09:46] LABS: Bilirubin,Urine NEG (Negative); Blood,Urine NEG (Negative); Color,Urine Yellow (Yellow); Hyaline Casts,Urine 1 /LPF; Mucus,Urine FEW /HPF; Nitrite,Urine NEG (Negative); Protein,Urine <15 mg/dL mg/dL (Negative)
[2017-10-09] MEDS ORDERED: TORADOL IV ONE (13:06)
[2017-10-09] MEDS ORDERED: NACL 0.9% 1000 ML 1,000 ML IV ONE (13:06)
[2017-10-09] MEDS ORDERED: ZOFRAN IV ONE (13:06)
[2017-10-09] MEDS ORDERED: PEPCID IV ONE (13:06)
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
--- NOTE | 2017-10-09 14:58 | Cat Scan Report ---
CT ABDOMEN PELVIS WITH CONTRAST: HISTORY: Burning abdominal pain. COMPARISON: 08/01/17. TECHNIQUE: Helical CT in 1.25mm intervals following IV contrast. Sagittal and coronal reconstructions. FINDINGS: Lung bases: Normal. Liver: Severe diffuse fatty infiltration of the liver is unchanged. Mild hepatomegaly. No focal liver mass. Biliary system: Normal. Pancreas: Normal. Spleen: Normal. Kidneys/ureters/bladder: Normal. Adrenal glands: Normal. Aorta: Normal caliber. A vascular stent is noted in the proximal superior mesenteric artery. The stent and SMA appear to be patent although there appears to be moderate atherosclerotic narrowing just proximal to the stent. The remaining mesenteric arteries are widely patent. Intestines: There are multiple distal small bowel loops demonstrating circumferential thickening which has increased by 25% since 08/01/17. There is no evidence for bowel obstruction or pneumatosis. No obvious GI mass although no oral contrast was administered. Appendix: Normal. Pelvic viscera: Normal. Ascites: Medium pelvic ascites. Adenopathy: None. Musculoskeletal: Within normal limits. IMPRESSION: Thickened loops of distal small bowel consistent with enteritis which has increased slightly since the comparison exam. This may represent Crohn's disease although other etiologies are not excluded. Please correlate with the patient's clinical history. Diffuse fatty infiltration of the liver parenchyma, unchanged. Ascites.
== END 2017-10-09 15:31 | disposition home or self-care (01) ==
LOC: ED 06:52
DX: K52.9 Noninfective gastroenteritis and colitis, unspecified (principal); F17.200 Nicotine dependence, unspecified, uncomplicated
CPT/HCPCS: 36415; 74177; 80053; 81001; 81025; 83690; 85025; 96361; 96374; 96375; 99284; J1885; J2405; J7030; Q9967

== ENCOUNTER 2020-10-18 14:55 | Emergency (ER) | payer MEDICAID ==
[2020-10-18 16:32] VITALS: BP 153/76
[2020-10-18 17:03] LABS: Basophils # (Auto) 0.1 K/mm3 (0.0-0.1); Basophils % (Auto) 0.5 % (0.0-1.8); Eosinophils # (Auto) 0.3 K/mm3 (0.0-0.4); Eosinophils % (Auto) 2.3 % (0.0-4.3); Hematocrit 40.4 % (30.3-42.9); Hemoglobin 13.3 gm/dl (10.1-14.3); Lymphocytes # (Auto) 2.9 K/mm3 (1.2-5.4); Lymphocytes % (Auto) 21.6 % (13.4-35.0); Mean Corpuscular HGB Conc 33 % (30-34); Mean Corpuscular Volume 93 fl (79-97); Monocytes # (Auto) 0.6 K/mm3 (0.0-0.8); Monocytes % (Auto) 4.5 % (0.0-7.3); Platelet Count 393 K/mm3 (140-440); Red Blood Count 4.36 M/mm3 (3.65-5.03); Red Cell Distribution Width 16.7 % (13.2-15.2)
[2020-10-18 17:28] LABS: Alanine Aminotransferase 21 units/L (7-56); Blood Urea Nitrogen 9 mg/dL (7-17); Calcium 9.5 mg/dL (8.4-10.2); Hemolysis Index 9
[2020-10-18 17:30] LABS: BUN/Creatinine Ratio 13
--- NOTE | 2020-10-18 21:06 | Cat Scan Report ---
CT ABDOMEN AND PELVIS WITH CONTRAST INDICATION / CLINICAL INFORMATION: Epigastric abdominal pain with nausea, vomiting and diarrhea. TECHNIQUE: Axial CT images were obtained through the abdomen and pelvis after IV contrast. All CT sc ans at this location are performed using CT dose reduction for ALARA by means of automated exposure c ontrol. COMPARISON: CT dated 10/09/2017 FINDINGS: LOWER CHEST: Unremarkable LIVER: Mild hepatomegaly and hepatic steatosis suspected. GALLBLADDER/BILIARY TREE: No significant abnormality PANCREAS: No significant abnormality SPLEEN: No significant abnormality ADRENALS: No significant abnormality KIDNEYS / URETER: No significant abnormality URINARY BLADDER: Bladder is partially decompressed, though grossly unremarkable. REPRODUCTIVE ORGANS: No significant abnormality STOMACH / SMALL BOWEL: Stomach and small bowel are normal in caliber. No evidence of bowel inflammati on. COLON: The colon is unremarkable. The appendix is normal in caliber. LYMPH NODES: No significant adenopathy. VASCULATURE: The SMA stent appears occluded, though there is reconstitution of flow just past the holden nt. There is mild to moderate calcified and noncalcified plaque throughout the abdominal aorta and ma joel branching vessels. No evidence of aneurysm. OTHER: No free air, free fluid, or focal fluid collection is identified. SKELETAL SYSTEM: No acute osseous findings. IMPRESSION: 1. The SMA stent is occluded with reconstitution of flow just distal to the stent. This is favored to be chronic, though is new from prior CTA from 10/09/2017. 2. No evidence of end organ ischemia or other acute process in the abdomen or pelvis. 3. Other stable chronic and incidental findings as above Signer Name: Juan Ramon Osorio MD Signed: 10/18/2020 9:01 PM Workstation Name: [id number]
[2020-10-18] MEDS ORDERED: KETOROLAC 30 MG/1 ML INJ IV STA (22:09)
[2020-10-18] MEDS ORDERED: ONDANSETRON 4 MG/2 ML INJ IV STA (22:09)
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
== END 2020-10-18 22:45 | disposition home or self-care (01) ==
LOC: ED 14:55
DX: R10.13 Epigastric pain (principal); R10.31 Right lower quadrant pain; R11.0 Nausea; E11.9 Type 2 diabetes mellitus without complications; J45.909 Unspecified asthma, uncomplicated; Z98.890 Other specified postprocedural states; Z79.84 Long term (current) use of oral hypoglycemic drugs; Z79.899 Other long term (current) drug therapy
CPT/HCPCS: 36415; 74177; 80053; 83690; 84702; 85025; 96374; 96375; 99284; J1885; J2405; Q9967